=== PATIENT | female | born 1980 | race Caucasian/White ===

== ENCOUNTER 2021-04-18 07:19 | Emergency (ER) | payer BC, SELFPAY ==
[2021-04-18] VITALS (11 sets, daily range): BP systolic 112–156; BP diastolic 81–98; PULSE 60–79; RESP 12–18; TEMP 36.5–36.6; O2SAT 94–100; BMI 30.6
--- NOTE | 2021-04-18 07:27 | W.ED.FEMALGU ---
HPI - Female Genitourinary General: Chief complaint: General Medical Stated complaint: KIDNEY STONE Time Seen by Provider: 04/18/21 07:25 History of Present Illness: HPI Narrative: 41-year-old female presents emergency room complaining kidney stone. She began having pain around 5 AM this morning. Said several episodes of emesis. Most of her pain is on the left she has not noticed any hematuria. No dysuria urgency or frequency. No hematemesis. Is been approximately 6 or 7 years since her last renal stone she passed that one without significant problems has never seen urology no history of stenting or lithotripsy. MD elicited complaint: flank pain (Left) Onset (ago): hour(s) Location of symptoms: flank (Left) Female Urogenital Radiation: Suprapubic and LLQ Severity scale (1-10): 10 Quality of pain: sharp Consistency: constant Vaginal discharge: none Vaginal bleeding: none Urinary symptoms: Flank Pain Exacerbating factors: none Relieving factors: none Associated symptoms: Reports abdominal pain and nausea; Deny short of breath, fevers/chills, headache(s), rash, seizures, syncope, vaginal discharge or weakness Treatment prior to arrival: other (Ibuprofen) Possible : other (To me) Review of Systems Const: Denies: fever(s), chills, body aches, change in appetite, fatigue or malaise Card: Denies: syncope Resp: Denies: dyspnea, productive cough or non-productive cough GI: Reports: abdominal pain and nausea : Denies: vaginal discharge Neuro: Denies: headache(s) [facility] ED PFSH: Medical History (Updated 04/18/21 @ 11:44 by Tobias Pimentel DO) History of nephrolithiasis Surgical History (Updated 04/18/21 @ 07:42 by Tobias Pimentel DO) Status post hysterectomy Physical Exam Const: COMMON NORMALS: no acute distress GENERAL APPEARANCE: cooperative and comfortable ORIENTATION/CONSCIOUSNESS: Yes awake, Yes oriented to person, Yes oriented to place and Yes oriented to time HENMT: COMMON NORMALS: normocephalic, atraumatic, hearing grossly normal bilaterally and external ears normal HEAD & SCALP: normocephalic and atraumatic EXTERNAL EAR: Yes external ears normal Neck/C-Spine: COMMON NORMALS: no JVD Resp: COMMON NORMALS: normal respiratory effort, No retractions, No use of accessory muscles and clear to auscultation bilaterally AUSCULTATION: clear to auscultation bilaterally Cardio: COMMON NORMALS: no JVD, regular rate, regular rhythm and No murmurs present (Cardio) RATE: regular rate RHYTHM: regular rhythm GI: COMMON NORMALS: Soft to palpation and No hepatosplenomegaly present AUSCULTATION: Yes normoactive bowel sounds PALPATION: Yes Soft to palpation, No Tenderness to palpation present (GI), No Guarding due to palpation present (GI) and Yes No hepatosplenomegaly present : BLADDER/KIDNEY EXAM: Yes CVA tenderness Back/Pelvis: GENERAL BACK: Yes CVA tenderness CVA tenderness: left Extremity: COMMON NORMALS: normal to inspection, capillary refill normal, no clubbing, cyanosis or edema, no calf tenderness and no pedal edema Neuro: SENSORIUM/ORIENTATION: Yes oriented to person, Yes oriented to place and Yes oriented to time Skin: COMMON NORMALS: no rashes or lesions noted GENERAL SKIN EXAM: no rashes or lesions noted Course Vital Signs: Vital signs: Vital Signs Temperature 97.7 F 04/18/21 09:38 Pulse Rate 79 04/18/21 12:08 Respiratory Rate 12 04/18/21 12:08 Blood Pressure 124/90 04/18/21 12:08 Pulse Oximetry 99 04/18/21 12:08 MDM - Female MDM Narrative: Medical decision making narrative: Patient given large amount narcotics insulin only mild pain control we were considering admission discussed Dr. Sunshine he usually asked that we avoid Toradol because of procedures with the stone he does not feel that that is necessary in this case we gave her Toradol and she did have significant improvement. Will discharge home with p.o. Toradol p.o. promethazine and hydrocodone as well as tamsulosin and strain her urine. I have asked her to use laxatives the night before she sees Dr. Sunshine he is anticipating possible lithotripsy Wednesday morning. If she has uncontrolled pain return family preservation caseworker will make her an appointment with Dr. Sunshine. Lab Data: Labs: Lab Results 04/18/21 04/18/21 04/18/21 Range/Units 07:35 07:35 08:45 WBC 7.7 (4.0-10.0) 10^3/ uL RBC 4.46 (4.1-5.3) 10^6/u L Hgb 13.7 (11.5-15.3) g/dL Hct 39.8 (37.0-47.0) % MCV 89.2 (81-99) fL MCH 30.7 (28.0-34.0) pg MCHC 34.4 (30.0-36.0) g/dL RDW 12.8 (12.1-15.1) % Plt Count 332 (130-400) 10^3/c mm MPV 9.9 (7.4-10.4) fL Neut % (Auto) 63.4 % Lymph % (Auto) 28.6 % Forrest % (Auto) 6.2 % Eos % (Auto) 0.8 % Baso % (Auto) 0.6 % Neut # (Auto) 4.88 (1.8-7.7) 10^3/u L Lymph # (Auto) 2.2 (0.8-4.8) 10^3/u L Forrest # (Auto) 0.5 (0.2-0.9) 10^3/u L Eos # (Auto) 0.1 (0.0-0.8) 10^3/u L Baso # (Auto) 0.1 (0.0-0.1) 10^3/u L Nucleated RBC % (a uto) 0 % Nucleated RBCs # 0.0 /100WBC Sodium 138 (136-145) mmol/L Potassium 3.6 (3.5-5.1) mmol/L Chloride 102 (98-107) mmol/L Carbon Dioxide 21 L (22-29) mmol/L Anion Gap 18.6 (5-19) BUN 17 (6-20) mg/dL Creatinine 0.8 (0.5-0.9) mg/dL GFR Calculation 79.9 L (90-130) mL/min Glucose 127 H (65-115) mg/dL Calculated Osmolal ity 289 (285-295) mOsm/k g Calcium 9.1 (8.5-10.5) mg/dL Urine Color Yellow (Yellow) Urine Appearance Sl hazy (CLEAR) Urine pH 7 (5-7) Ur Specific Gravit y 1.010 (1.005-1.030) Urine Protein Neg (Negative) Urine Glucose (UA) Norm (Normal) Urine Ketones 1+ H (Negative) Urine Blood 3+ H (Negative) Urine Nitrate Negative (Negative) Urine Bilirubin Neg (Negative) Urine Urobilinogen Norm (Negative) mg/dL Ur Leukocyte Gely ase Negative (Negative) Urine RBC 25-40 H (0-2) /hpf Urine WBC None (0-5) /hpf Ur Squamous Epith Cells 0-4 H (0-5) /hpf Amorphous Sediment Not Reportable Urine Bacteria 2+ H (NONE) /hpf Urine Mucus Trace /hpf Discharge Plan Discharge Patient Disposition: Home Clinical Impression: Left nephrolithiasis Condition: Stable Prescriptions: New hydrocodone-acetaminophen 5-325 mg tablet 1 tab PO Q6H PRN (Reason: pain) Qty: 20 RF: 0 ketorolac 10 mg tablet 10 mg PO Q6H PRN (Reason: pain) 5 Days Qty: 20 RF: 0 promethazine 25 mg tablet 25 mg PO Q6H PRN (Reason: nausea and vomiting) Qty: 14 RF: 0 tamsulosin 0.4 mg capsule 0.4 mg PO DAILY Qty: 20 RF: 0 No Action multivitamin Tablet 1 tab PO PRN RF: 0 ibuprofen 200 mg Tablet 200 - 400 mg PO PRN RF: 0 Vitamin D3 125 mcg (5,000 unit) Tablet 125 mcg PO QAM RF: 0 Discharge Orders: Discharge ED (Routine); Ordered 04/18/21 Ordered By: Tobias Pimentel Referrals: Yakov Guy MD [Primary Care Provider] - Discharge Diet: Usual diet Discharge Activity: Increase activity as tolerated Patient Instructions: Opioid Safety Activity Restrictions/Additional Instructions: Manage will make arrangements for you to follow-up with Dr. Sunshine early next week. Wednesday night you should use mag citrate a half a bottle every 6 hours x 2 doses. Clear liquids only after 9:[address] Sunshine is anticipating possible lithotripsy Wednesday. Coding Level of Care Code ED Filtering Machine Tender for Nancieg Fwd Exam Comprehensive
[2021-04-18] MEDS: morphine 4 mg/mL SDV 1 mL IVP ×4 (07:42→09:37)
[2021-04-18] MEDS: ondansetron 2 mg/ML SDV 2 mL 4 MG IVP (07:43)
[2021-04-18] MEDS: sodium chloride 0.9% 1,000 ML 999 ML IV ×2 (07:45→09:49)
[2021-04-18 07:51] LABS: Basophils # 0.1 10^3/uL (0.0-0.1); Basophils % 0.6 %; Eosinophils # 0.1 10^3/uL (0.0-0.8); Eosinophils % 0.8 %; Hematocrit 39.8 % (37.0-47.0); Hemoglobin 13.7 g/dL (11.5-15.3); Lymphocytes # 2.2 10^3/uL (0.8-4.8); Lymphocytes % 28.6 %; Mean Corpuscular HGB Conc 34.4 g/dL (30.0-36.0); Mean Corpuscular Hemoglobin 30.7 pg (28.0-34.0); Mean Corpuscular Volume 89.2 fL (81-99); Mean Platelet Volume 9.9 fL (7.4-10.4); Monocytes # 0.5 10^3/uL (0.2-0.9); Monocytes % 6.2 %; Neutrophils # 4.88 10^3/uL (1.8-7.7); Neutrophils % 63.4 %; Nucleated Red Blood Cells % 0 %; Platelet Count 332 10^3/cmm (130-400); Red Blood Count 4.46 10^6/uL (4.1-5.3); Red Cell Distribution Width 12.8 % (12.1-15.1); White Blood Count 7.7 10^3/uL (4.0-10.0)
[2021-04-18 08:09] LABS: Anion Gap 18.6 (5-19); Blood Urea Nitrogen 17 mg/dL (6-20); Calcium 9.1 mg/dL (8.5-10.5); Carbon Dioxide 21 mmol/L (22-29); Chloride 102 mmol/L (98-107); Glomerular Filtration Rate 79.9 mL/min (90-130); Glucose 127 mg/dL (65-115); Osmolality Calculated 289 mOsm/kg (285-295); Potassium 3.6 mmol/L (3.5-5.1); Sodium 138 mmol/L (136-145)
[2021-04-18] MEDS: promethazine 25 mg/mL SDV 1 mL 12.5 MG IM ×2 (08:15→10:04)
--- NOTE | 2021-04-18 08:26 | CT_ITS ---
WS: [id number] CT ABDOMEN PELVIS TECHNIQUE: Noncontrast CT of the abdomen and pelvis with coronal and sagittal reformatted images. CLINICAL INFORMATION: flank pain COMPARISON: CT 3 25,013 DLP: 1269.[address] scans at [facility] use at least one of these dose optimization techniques: automat ed exposure control; mA and/or kV adjustment per patient size (includes targeted exams where dose is matched to clinical indication); or iterative reconstruction. FINDINGS: Moderate left hydronephrosis with inflammatory stranding and edema about the left kidney. 7 mm obstru cting distal UVJ calculus. This is new from the prior examination. Left ureterectasis. No obstructing right renal or ureteral calculi. Pelvic phleboliths. Subcentimeter nonobstructing left renal pelvic calculi. Lung bases are well aerated. Noncontrast liver is normal. Cholecystectomy clips. Normal GE junction. Noncontrast spleen is normal. Noncontrast pancreas is normal. Normal caliber abdominal aorta. No evid ence of high-grade small or large bowel obstruction. Tiny fat-containing umbilical hernia. CT/CT kidney stone [id number] IMPRESSION: 1. 7 mm obstructing distal left UVJ calculus with moderate left hydronephrosis and ureterectasis. 2. Inflammatory stranding and edema about the left kidney. 3. No other significant changes from previous. 4. Prior cholecystectomy. Notified Tobias Pimentel DO at 04/18/2021 10:01 AM.
[2021-04-18 09:21] LABS: Add Urine Microscopic? YES; Bilirubin Urine Neg (Negative); Blood Urine 3+ (Negative); Glucose Urine UA Norm (Normal); Ketones Urine 1+ (Negative); Leukocyte Esterase Urine Negative (Negative); Nitrate Urine Negative (Negative); Protein Urine Neg (Negative); RBC Urine 25-40 /hpf (0-2); Urine Appearance SL Hazy (CLEAR); Urine Color Yellow (Yellow); Urobilinogen Urine Norm (Negative); pH Urine 7 (5-7)
[2021-04-18 09:22] LABS: Add Urine Culture? Yes; Bacteria Urine 2+ /hpf; Mucus Urine TRACE /hpf; Squamous Epithelial Cell Urine 0-4 /hpf (0-5)
[2021-04-18] MEDS: cefTRIAXone 2,000 MG in sodium chloride 0.9% (plus) 50 ML 100 MG IV (09:42)
[2021-04-18] MEDS: tamsulosin 0.4 mg Capsule PO (09:54)
[2021-04-18] MEDS: HYDROmorphone 1 mg/mL INJ 1 mL 0.5 MG IVP (10:37)
[2021-04-18] MEDS: ketorolac 30 mg/mL INJ IVP (10:54)
--- NOTE | 2021-04-18 10:56 | PC.NURSE ---
Pt rates pain 7/10 after Dilaudid, sts currently not nauseated.
--- NOTE | 2021-04-18 11:30 | PC.NURSE ---
Pt reports the toradol was very effective, now rates her pain 5/10.
--- NOTE | 2021-04-18 14:40 | DCPLANNER ---
biofuels engineering manager had message to schedule a follow up appointment for patient with Dr. Sunshine. biofuels engineering manager called the office of Dr. Sunshine, spoke with Keren, gave clinic patients information. biofuels engineering manager was told that patients information would be printed and reviewed. Clinic will call patient with appointment information.
--- NOTE | 2021-04-24 08:26 | DCPLANNER ---
Patient had a follow up appointment scheduled for 04.21.[address] Sunshine - patient did attend appointment.
== END 2021-04-18 12:11 | disposition home or self-care (01) ==
PROVIDERS: Emergency Provider Family Medicine; PCP Family Medicine
DX: N20.0 Calculus of kidney (principal); Z87.442 Personal history of urinary calculi
CPT/HCPCS: 74176; 80048; 81001; 85025; 87040; 87086; 96365; 96372; 96375; 96376; 99284; J0696; J1170; J1885; J2270; J2405; J2550; J7030

== ENCOUNTER 2021-04-21 07:02 | Outpatient (CLI) | payer BC, SELFPAY ==
--- NOTE | 2021-04-21 07:09 | XRR_ITS ---
PROCEDURE INFORMATION: Exam: XR Abdomen Exam date and time: 04/21/2021 7:12 AM Age: 41 years old Clinical indication: Condition or disease; Other: Uvj stone; Prior surgery; Surgery type: Hsyterectomy, gb TECHNIQUE: Imaging protocol: XR of the abdomen. Views: Frontal supine view of the abdomen. 1 View. COMPARISON: CT kidney stone [id number] 04/18/2021 9:01 AM FINDINGS: Gastrointestinal tract: No bowel dilation identified to suggest obstruction. Intraperitoneal space: There is a 0.5 cm calcification in the left hemipelvis, consistent with ureterovesicular junction stone, similar to prior study. Several other small calcifications in the pelvis, consistent with phleboliths. Bones/joints: Unremarkable. XR/XR KUB [id number] IMPRESSION: 1. There is a 0.5 cm calcification in the left hemipelvis, consistent with ureterovesicular junction stone, similar to prior study.
== END 2021-04-21 07:03 | disposition home or self-care (01) ==
PROVIDERS: PCP Family Medicine; Visit Provider Urology
DX: N20.1 Calculus of ureter (principal)
CPT/HCPCS: 74018; 81003

== ENCOUNTER 2021-04-25 10:06 | Outpatient (CLI) | payer BC, SELFPAY ==
--- NOTE | 2021-04-25 10:00 | XR_ITS ---
WS: [id number] KUB, AP view, 04/25/2021 Clinical Data: STONE Comparison: KUB, 04/21/2021. Findings: No abnormal intraabdominal masses are seen. There is no dilatated small bowel or evidence of obstruct ion. There are calcifications overlying the left kidney unchanged. No calcifications are noted over the ri ght kidney. The probable distal left UVJ calculus is not present. There are several phleboliths in th e true pelvis. XR/XR KUB [id number] Impression: 1. Left UVJ calculus no longer present. 2. Small calcifications overlying the left kidney unchanged.
== END 2021-04-25 10:07 | disposition home or self-care (01) ==
LOC: RAD 10:10
PROVIDERS: PCP Family Medicine; Visit Provider Nurse Practitioner Family
DX: N20.0 Calculus of kidney (principal)
CPT/HCPCS: 74018; 81003; 82365; 88300

== ENCOUNTER → 2021-07-30 12:05 | Outpatient (BNVA) | payer BC, SELFPAY | PROVIDERS: PCP Family Medicine; Visit Provider Nurse Practitioner Women's Health | DX: E28.2 Polycystic ovarian syndrome (principal) | CPT/HCPCS: 80048; 82670; 83001; 84146; 84443 ==

== ENCOUNTER 2021-10-28 12:17 | Outpatient (CLI) | payer OTHER, SELFPAY ==
--- NOTE | 2021-10-28 12:30 | XR_ITS ---
WS: [id number] XR KUB [id number] REASON FOR EXAM: CALCULUS OF UVJ FINDINGS: Previously demonstrated left ureteral vesicle calculus no longer identifiable. Also absent on previou s examination 04/25/2021. Elongated calculus with smaller calculus overlying the lower pole of the left kidney. No free air or retroperitoneal air. Unremarkable bowel gas pattern. No mass identified. XR/XR KUB [id number] IMPRESSION: Left intrarenal calculi. The examination is unchanged compared to 04/25/2021.
== END 2021-10-28 12:18 | disposition home or self-care (01) ==
PROVIDERS: PCP Family Medicine; Visit Provider Urology
DX: N20.1 Calculus of ureter (principal); N20.0 Calculus of kidney
CPT/HCPCS: 74018; 81003

== ENCOUNTER 2021-11-15 17:22 | Emergency (ER) | payer BC, SELFPAY ==
[2021-11-15 17:55] VITALS: BP 122/87; PULSE 77; RESP 16; TEMP 36.9; O2SAT 100
[2021-11-15 19:57] LABS: Add Urine Culture? No; Add Urine Microscopic? YES; Bacteria Urine TRACE /hpf; Bilirubin Urine Neg (Negative); Blood Urine 3+ (Negative); Calcium Oxalate Crystals Urine 0-4 /hpf; Glucose Urine UA Norm (Normal); Ketones Urine Negative (Negative); Leukocyte Esterase Urine Negative (Negative); Mucus Urine 2+ /hpf; Nitrate Urine Negative (Negative); Protein Urine Trace (Negative); RBC Urine TOO NUMEROUS TO CNT /hpf (0-2); Specific Gravity, Urine 1.025 (1.005-1.030); Urine Appearance Hazy (CLEAR); Urine Color Yellow (Yellow); Urobilinogen Urine Norm (Negative); WBC Urine 0-4 /hpf (0-5); pH Urine 5 (5-7)
--- NOTE | 2021-11-15 22:17 | CTR_ITS ---
PROCEDURE INFORMATION: Exam: CT Abdomen And Pelvis Without Contrast Exam date and time: 11/15/2021 10:17 PM Age: 41 years old Clinical indication: Nausea; Abdominal pain; Flank; Left; Prior surgery; Surgery type: Gb, appy, hyst; Additional info: L flank pain TECHNIQUE: Imaging protocol: Computed tomography of the abdomen and pelvis without contrast. Radiation optimization: All CT scans at this facility use at least one of these dose optimization techniques: automated exposure control; mA and/or kV adjustment per patient size (includes targeted exams where dose is matched to clinical indication); or iterative reconstruction. COMPARISON: CR XR KUB [id number] 10/28/2021 12:28 PM RADIATION DOSE METRICS: Total DLP (mGy-cm): 1001.3 FINDINGS: Lungs: Lung bases are clear. Liver: The liver is normal. Gallbladder and bile ducts: The gallbladder is absent. There is no intrahepatic or extrahepatic bile duct dilation. Pancreas: The pancreas is unremarkable. Spleen: The spleen is unremarkable. Adrenal glands: The adrenal glands are unremarkable. Kidneys and ureters: Mild left hydronephrosis diffuse hydroureter. There is a lobulated calcification in the distal left ureter just above the ureterovesical junction which measures 8 x 3 x 4 mm. There are nonobstructive stones in the left kidney measuring up to 3 mm diameter. There is a solitary 2 mm nonobstructive stone in the right kidney. There is no hydronephrosis or ureteral dilation on the right. Stomach and bowel: The stomach is decompressed, preventing meaningful evaluation of wall thickness. The small bowel is nondilated. The colon is unremarkable. Appendix: The appendix is normal. Intraperitoneal space: Trace pelvic free fluid is likely physiologic. There is no intraperitoneal free air. Vasculature: The aorta is unremarkable. There is no aneurysm. Lymph nodes: There is no lymphadenopathy in the retroperitoneum, mesentery, pelvis or inguinal regions. Urinary bladder: The urinary bladder is unremarkable. Reproductive: The uterus is absent. There is no adnexal mass or large cyst. Bones/joints: Bones are unremarkable. Soft tissues: The abdominal wall is intact. CT/CT kidney stone [id number] IMPRESSION: At least 2 left distal ureteral stones measuring 8 x 3 x 4 mm in aggregate. Mild hydronephrosis.
--- NOTE | 2021-11-15 22:17 | W.ED.FEMALGU ---
HPI - Female Genitourinary General: Chief complaint: Urogenital-Female Stated complaint: L FLANK PAIN, HX KIDNEY STONES Time Seen by Provider: 11/15/21 21:36 Source: patient Mode of arrival: ambulatory Limitations: no limitations History of Present Illness: HPI Narrative: 41-year-old female has a history of kidney stones. She states that she had 2 in her life and has a known one in her kidney that Dr. Iyer's been following and was been planning lithotripsy. States that she believes is actually moved because she started having pain today roughly 6 to 7 hours ago on that left side. States pain is currently an 8 out of 10 she been having nausea vomiting she denies any fever denies any worsening improving factors. Associated symptoms: Deny abdominal pain, headache(s) or nausea Review of Systems Const: Denies: fever(s), chills, body aches or change in appetite Eyes: Denies: blurry vision or eye discomfort ENMT: Denies: throat pain or dental pain Card: Denies: chest pain Resp: Denies: dyspnea GI: Denies: abdominal pain, nausea, vomiting or diarrhea : Reports: flank pain Musc: Denies: neck pain or back pain Skin/Breast: Denies: rash Neuro: Denies: headache(s) Psych: Denies: depression Yoan/Lymph: Denies: easy bruising All/Imm: Denies: urticaria PFSH ED PFSH: Medical History Calculus of ureterovesical junction (UVJ) History of nephrolithiasis No pertinent past medical history neghx: htn,dm,thyroid,dvt/pe PCP: Dr. Guy PCOS (polycystic ovarian syndrome) Surgical History Hx of cholecystectomy Hx of endoscopy 2016--- reports she has had multiple for reflux issues Hx of hysterectomy (~2018) LAVH, bilateral salpingectomy. Still has ovaries. Performed by Dr. oGnzales in [facility]. [place] teeth removed (~2014) Family History Grandfather Cancer MGF----- Prostate CA Heart disease Maternal Grandmother Diabetes Maternal Hypercholesteremia Paternal Mother Thyroid disease Denies family history of Colon cancer Ovarian cancer Breast cancer Hypertension Uterine cancer Stroke Social History Smoking and tobacco status: never smoked Alcohol intake: current Alcohol intake frequency: few times a month Marital status: Current occupational status: employed History of recent travel: No Physical Exam Const: COMMON NORMALS: no acute distress, patient oriented x3 and healthy appearing HENMT: COMMON NORMALS: normocephalic and atraumatic HEAD & SCALP: normocephalic and atraumatic Eye: COMMON NORMALS: Equal, round and reactive pupils present and EOMs intact bilaterally PUPIL: Yes Equal, round and reactive pupils present Neck/C-Spine: COMMON NORMALS: full ROM and supple Chest: COMMONS NORMALS: normal inspection of the chest and normal palpation of entire chest wall Resp: COMMON NORMALS: normal respiratory effort, No retractions, No use of accessory muscles and clear to auscultation bilaterally AUSCULTATION: clear to auscultation bilaterally Cardio: COMMON NORMALS: regular rate, regular rhythm and No murmurs present (Cardio) RATE: regular rate RHYTHM: regular rhythm GI: COMMON NORMALS: Normal to inspection, nondistended, normoactive bowel sounds present, Soft to palpation, non-tender and no masses PALPATION: Yes Soft to palpation Extremity: COMMON NORMALS: normal to inspection and full ROM Neuro: COMMON NORMALS: patient oriented x3, moves all extremities and no focal motor deficits Psych: COMMON NORMALS: mental status grossly normal, Normal thought process present and cooperative THOUGHT PROCESS: Normal thought process present Skin: COMMON NORMALS: no rashes or lesions noted and no wounds GENERAL SKIN EXAM: no rashes or lesions noted Course Vital Signs: Vital signs: Vital Signs Temperature 98.5 F 11/15/21 17:55 Pulse Rate 77 11/15/21 17:55 Respiratory Rate 16 11/15/21 17:55 Blood Pressure 122/87 11/15/21 17:55 Pulse Oximetry 100 11/15/21 17:55 MDM - Female MDM Narrative: Medical decision making narrative: Patient presents here with a kidney stone her pain here is much improved I spoke to Dr. Sunshine patient like to follow-up with him on Wednesday we will get her an appointment. She is to return if her pain worsens she understands agrees to plan. Lab Data: Labs: Lab Results 11/15/21 11/15/21 11/15/21 19:15 22:50 22:50 WBC 13.7 10^3/uL H 10 ^3/uL (4.0-10.0) RBC 4.76 10^6/uL 10^6 /uL (4.1-5.3) Hgb 15.0 g/dL g/dL (11.5-15.3) Hct 44.4 % % (37.0-47.0) MCV 93.3 fl fl (81-99) MCH 31.5 pg pg (28.0-34.0) MCHC 33.8 g/dL g/dL (30.0-36.0) RDW 12.5 % % (12.1-15.1) Plt Count 329 10^3/cmm 10^3 /cmm (130-400) MPV 10.0 fL fL (7.4-10.4) Neut % (Auto) 75.1 % % Lymph % (Auto) 16.6 % % Piute % (Auto) 7.5 % % Eos % (Auto) 0.1 % % Baso % (Auto) 0.4 % % Neut # (Auto) 10.32 10^3/uL H 1 0^3/uL (1.8-7.7) Lymph # (Auto) 2.3 10^3/uL 10^3/ uL (0.8-4.8) Piute # (Auto) 1.0 10^3/uL H 10^ 3/uL (0.2-0.9) Eos # (Auto) 0.0 10^3/uL 10^3/ uL (0.0-0.8) Baso # (Auto) 0.1 10^3/uL 10^3/ uL (0.0-0.1) Nucleated RBC % (a uto) 0 % % Nucleated RBCs # 0.0 /100WBC /100W BC Sodium 137 mmol/L mmol/L (136-145) Potassium 4.0 mmol/L mmol/L (3.5-5.1) Chloride 102 mmol/L mmol/L (98-107) Carbon Dioxide 22 mmol/L mmol/L (22-29) Anion Gap 17.0 (5-19) BUN 11 mg/dL mg/dL (6-20) Creatinine 0.7 mg/dL mg/dL (0.5-0.9) GFR Calculation 93.2 mL/min mL/mi n (90-130) Glucose 108 mg/dL mg/dL (65-115) Calculated Osmolal ity 284 mOsm/kg L mOs m/kg (285-295) Calcium 9.5 mg/dL mg/dL (8.5-10.5) Total Bilirubin 0.4 mg/dL mg/dL (0.15-1.2) AST 20 U/L U/L (0-32) ALT 25 U/L U/L (0-33) Alkaline Phosphata se 80 IU/L IU/L (35-105) Total Protein 8.3 g/dL g/dL (6.6-8.7) Albumin 4.9 g/dL g/dL (3.5-5.2) Globulin 3.4 g/dL g/dL (1.3-4.6) Lipase 20 U/L U/L (13-60) Urine Color Yellow (Yellow) Urine Appearance Hazy A (CLEAR) Urine pH 5 (5-7) Ur Specific Gravit y 1.025 (1.005-1.030) Urine Protein Trace (Negative) Urine Glucose (UA) Norm (Normal) Urine Ketones Negative (Negative) Urine Blood 3+ H (Negative) Urine Nitrate Negative (Negative) Urine Bilirubin Neg (Negative) Urine Urobilinogen Norm mg/dL mg/dL (Negative) Ur Leukocyte Gely ase Negative (Negative) Urine RBC Too numerous to c nt /hpf H /hpf (0-2) Urine WBC 0-4 /hpf H /hpf (0-5) Ur Squamous Epith Cells 10-15 /hpf H /hpf (0-5) Calcium Oxalate Cr ystal 0-4 /hpf H /hpf Amorphous Sediment Not Reportable Urine Bacteria Trace /hpf /hpf (NONE) Urine Mucus 2+ /hpf /hpf Discharge Plan Discharge Patient Disposition: Home Clinical Impression: Kidney stones Condition: Stable Prescriptions: New EC-Naprosyn 500 mg tablet,delayed release (DR/EC) 500 mg PO BID PRN (Reason: pain) Qty: 20 RF: 0 ondansetron 4 mg tablet,disintegrating 4 mg PO Q6H PRN (Reason: nausea and vomiting) Qty: 14 RF: 0 hydrocodone-acetaminophen 5-325 mg tablet 1 tab PO Q6H PRN (Reason: pain) Qty: 14 RF: 0 No Action phentermine 37.5 mg capsule 37.5 mg PO DAILY RF: 0 multivitamin Tablet 1 tab PO DAILY RF: 0 cholecalciferol (vitamin D3) [Vitamin D3] 125 mcg (5,000 unit) Tablet 125 mcg PO QAM RF: 0 Discharge Orders: Discharge ED (Routine); Ordered 11/15/21 Ordered By: Jacey Arnett Referrals: Gentry Sunshine MD [Physician] - 1-3 days Yakov Guy MD [Primary Care Provider] - Discharge Diet: Advance as tolerated Discharge Activity: Resume usual activity Patient Instructions: Opioid Safety Coding Level of Care Code ED Asphalt Machine Operator for Nancieg Fwd Exam Comprehensive
[2021-11-15] MEDS: ondansetron 2 mg/ML SDV 2 mL 4 MG IVP (22:30)
[2021-11-15] MEDS: sodium chloride 0.9% 1,000 ML 999 ML IV (22:30)
[2021-11-15] MEDS: HYDROmorphone 1 mg/mL INJ 1 mL IVP (22:30)
[2021-11-15 22:56] LABS: Basophils # 0.1 10^3/uL (0.0-0.1); Basophils % 0.4 %; Eosinophils % 0.1 %; Hematocrit 44.4 % (37.0-47.0); Lymphocytes # 2.3 10^3/uL (0.8-4.8); Lymphocytes % 16.6 %; Mean Corpuscular HGB Conc 33.8 g/dL (30.0-36.0); Mean Corpuscular Hemoglobin 31.5 pg (28.0-34.0); Mean Corpuscular Volume 93.3 fl (81-99); Monocytes % 7.5 %; Neutrophils # 10.32 10^3/uL (1.8-7.7); Neutrophils % 75.1 %; Nucleated Red Blood Cells % 0 %; Platelet Count 329 10^3/cmm (130-400); Red Blood Count 4.76 10^6/uL (4.1-5.3); Red Cell Distribution Width 12.5 % (12.1-15.1); White Blood Count 13.7 10^3/uL (4.0-10.0)
[2021-11-15 23:16] LABS: Alanine Aminotransferase 25 U/L (0-33); Albumin Level 4.9 g/dL (3.5-5.2); Alkaline Phosphatase 80 IU/L (35-105); Aspartate Amino Transferase 20 U/L (0-32); Blood Urea Nitrogen 11 mg/dL (6-20); Calcium 9.5 mg/dL (8.5-10.5); Carbon Dioxide 22 mmol/L (22-29); Chloride 102 mmol/L (98-107); Globulin 3.4 g/dL (1.3-4.6); Glomerular Filtration Rate 93.2 mL/min (90-130); Glucose 108 mg/dL (65-115); Lipase 20 U/L (13-60); Osmolality Calculated 284 mOsm/kg (285-295); Sodium 137 mmol/L (136-145); Total Bilirubin 0.4 mg/dL (0.15-1.2); Total Protein 8.3 g/dL (6.6-8.7)
[2021-11-15] MEDS: HYDROcodone-acetaminophen 5-325 mg Tablet 2 TAB PO (23:44)
== END 2021-11-15 23:54 | disposition home or self-care (01) ==
PROVIDERS: Emergency Provider Emergency Medicine; PCP Family Medicine
DX: N20.0 Calculus of kidney (principal); Z87.442 Personal history of urinary calculi
CPT/HCPCS: 74176; 80053; 81001; 83690; 85025; 96361; 96374; 96375; 99284; J1170; J2405; J7030

== ENCOUNTER 2021-11-17 12:09 | Outpatient (CLI) | payer BC, SELFPAY ==
--- NOTE | 2021-11-17 12:12 | XRR_ITS ---
PROCEDURE INFORMATION: Exam: XR Abdomen Exam date and time: 11/17/2021 12:12 PM Age: 41 years old Clinical indication: Condition or disease; Kidney or ureter condition; Calculus (stone) in kidney and calculus (stone) in ureter; Prior surgery; Surgery type: Hyst, gb; Additional info: Stones, kub ozh today @ 12:00 pm appt to follow TECHNIQUE: Imaging protocol: XR of the abdomen. Views: Frontal supine view of the abdomen. 1 View. COMPARISON: CT kidney stone [id number] 11/15/2021 10:30 PM FINDINGS: Gastrointestinal tract: Normal. No bowel dilation. Organs: Prior examination showed nonobstructing caliceal stones in the proximal left collecting system. The stones are not visible on this examination. Vasculature: There are multiple phleboliths seen in the pelvis. Bones/joints: Unremarkable. Soft tissues: Prior CT examination disclosed urinary outflow tract obstruction on the left side with a calcified stone in the distal left ureter near the UVJ. There is a 3 mm density seen in the projection of the distal left ureter which may reflect this small stone. Caliceal stones were present in the proximal collecting system of the left kidney on prior examination the stones are not visible on the current examination. XR/XR KUB [id number] IMPRESSION: 1. Calcified stone in the left pelvis suspicious for obstructing left ureter. 2. Previously visible caliceal stones in the left kidney are no longer visible 3. Otherwise No acute findings.
== END 2021-11-17 12:10 | disposition home or self-care (01) ==
LOC: RAD 12:11
PROVIDERS: PCP Family Medicine; Visit Provider Urology
DX: N20.0 Calculus of kidney (principal); N20.1 Calculus of ureter
CPT/HCPCS: 74018; 81003